=== PATIENT | female | born 1995 | race Two or more races ===

== ENCOUNTER 2023-07-09 19:35 | Emergency (ER) | payer OTHER ==
[2023-07-09 19:41] VITALS: BP 124/86; RESP 18; TEMP 98.4; BMI 26.9
[2023-07-09] MEDS ORDERED: ACETAMINOPHEN 325 MG TABLET (FP) ONE (20:10)
[2023-07-09] MEDS: ACETAMINOPHEN 500 MG TABLET (FP) PO ONE (20:14)
[2023-07-09 20:22] VITALS: PULSE 98
== END 2023-07-09 20:48 | disposition home or self-care (01) ==
LOC: JERFT 19:35
DX: M25.512 Pain in left shoulder (principal); S46.012A Strain of muscle(s) and tendon(s) of the rotator cuff of left shoulder, initial encounter; X58.XXXA Exposure to other specified factors, initial encounter
CPT/HCPCS: 73030-TC-LT-FY; 99283-25

== ENCOUNTER 2023-10-12 17:23 | Emergency (ER) | payer OTHER ==
[2023-10-12 17:28] VITALS: RESP 18; TEMP 98.1; BMI 25.4
[2023-10-12 18:33] LABS: BASO % 0.3 % (0-2.0); EOS % 1.5 % (0-4.5); HEMOGLOBIN 16.7 GM/dL (10.7-15.3); LYMPH % 32.2 % (8-40); MCH 29.6 pg (25.7-33.7); MCHC 32.7 g/dl (32.0-36.0); MEAN CELL VOLUME 90.5 fl (80-96); MEAN PLT VOLUME 8.2 fl (7.5-11.1); MONO % 6.7 % (3.8-10.2); NEUT % 59.3 % (42.8-82.8); PLATELET COUNT 288 10^3/uL (134-434); RBC 5.63 M/mm3 (3.60-5.2); RDW 13.3 % (11.6-15.6); WHITE BLOOD COUNT 9.4 K/mm3 (4.0-10.0)
[2023-10-12 18:45] LABS: POTASSIUM 4.1 mmol/L (3.5-5.1)
[2023-10-12 18:48] LABS: ALBUMIN 4.2 g/dl (3.4-5.0); BLOOD UREA NITROGEN 11.4 mg/dL (7-18); CALCIUM 9.9 mg/dL (8.5-10.1)
[2023-10-12 18:51] LABS: CREATININE 0.8 mg/dL (0.55-1.3)
[2023-10-12 18:53] LABS: BILIRUBIN,TOTAL 0.4 mg/dL (0.2-1)
[2023-10-12 19:31] VITALS: BP 121/84; PULSE 89
== END 2023-10-12 20:02 | disposition home or self-care (01) ==
LOC: JERFT 17:23
DX: R04.2 Hemoptysis (principal); R04.0 Epistaxis; R09.82 Postnasal drip; Z20.822 Contact with and (suspected) exposure to COVID-19
CPT/HCPCS: 0241U-QW; 36415; 71046-TC-FY; 80053; 85025; 85379; 87651; 99284-25